=== PATIENT | female | born 1970 | race Caucasian/White ===

== ENCOUNTER 2024-11-25 19:14 | Emergency (ER) | payer OTHER ==
[~2024-11-25] VITALS: Ht 162.6 cm; Wt 103.6 kg
[2024-11-25 19:19] VITALS: BP 176/109; PULSE 90; RESP 20; TEMP 98.5; O2SAT 98
[2024-11-25] MEDS: PredniSONE 20 MG TABLET PO ONE (21:45)
[2024-11-25] MEDS: LIDOCAINE 5% TRANSDERMAL PATCH TD ONE (21:46)
[2024-11-25] MEDS: KETOROLAC TROMETHAMINE 30 MG/ML VIAL IM ONE (21:47)
[2024-11-25] MEDS ORDERED: METH-659 PO (22:28)
[2024-11-25] MEDS ORDERED: IBUP-1492 PO (22:28)
== END 2024-11-25 23:20 | disposition home or self-care (01) ==
LOC: EMS 19:14
DX: M54.42 Lumbago with sciatica, left side (principal); E78.00 Pure hypercholesterolemia, unspecified; I10 Essential (primary) hypertension; K21.9 Gastro-esophageal reflux disease without esophagitis; Z88.0 Allergy status to penicillin
CPT/HCPCS: 99283; 96372; J1885; J7512

== ENCOUNTER 2025-03-26 19:10 | Emergency (ER) | payer OTHER ==
[~2025-03-26] VITALS: Ht 162.6 cm; Wt 81.8 kg
[~2025-03-26 19:10] MED LIST: IBUP-1492 PO; METH-659 PO
[2025-03-26] MEDS ORDERED: ROSU5TAB17 PO (19:44)
[2025-03-26] MEDS ORDERED: FLUT16H NASAL (19:44)
[2025-03-26] MEDS ORDERED: OLME40TA18 PO (19:44)
[2025-03-26] MEDS ORDERED: METO-408 PO (19:44)
[2025-03-26] MEDS ORDERED: PANT40TA54 PO (19:44)
[2025-03-26 19:56] LABS: BASOPHILS % (AUTO) 0.9 % (0.0-2.0); EOSINOPHILS % (AUTO) 1.3 % (1.0-6.0); HEMATOCRIT 44.4 % (36-46); HEMOGLOBIN 14.7 g/dL (12.0-16.0); LYMPHOCYTES # (AUTO) 2.6 K/uL (1.0-4.8); LYMPHOCYTES % (AUTO) 23.3 % (22.0-44.0); MEAN CORPUSCULAR HEMOGLOBIN 27.9 pg (26.0-34.0); MEAN CORPUSCULAR VOLUME 85 fL (80-100); MONOCYTES # (AUTO) 0.8 K/uL (0.1-1.0); MONOCYTES % (AUTO) 7.2 % (2.0-9.0); NEUTROPHILS # (AUTO) 7.4 K/uL (1.8-7.7); NEUTROPHILS % (AUTO) 67.3 % (40.0-70.0); PLATELET COUNT (AUTO) 308 K/uL (150-450); RED BLOOD CELL COUNT(AUTO) 5.25 MIL/uL (4.00-5.20); RED CELL DISTRIBUTION WIDTH 14.9 % (11.5-14.5)
[2025-03-26 20:07] LABS: ANION GAP 6 mmol/L (8-16); CALCIUM, TOTAL 10.1 mg/dL (8.8-10.5); CARBON DIOXIDE 32 mmol/L (22-29); CHLORIDE 102 mmol/L (98-107); CREATININE 0.76 mg/dL (0.60-1.30); GLOMERULAR FILTR. RATE CALC > 60 mL/min (>60); GLUCOSE,RANDOM 92 mg/dL (70-110); POTASSIUM 4.5 mmol/L (3.5-5.1); SODIUM SERUM 140 mmol/L (136-145); UREA NITROGEN, BLOOD 12 mg/dL (7-18)
[2025-03-26 20:10] LABS: ALBUMIN 3.7 g/dL (3.4-5.0); BILIRUBIN,DIRECT 0.1 mg/dL (0.00-0.20); BILIRUBIN,TOTAL 0.3 mg/dL (0.1-1.0)
[2025-03-26 20:17] LABS: TROPONIN I-HIGH SENSITIVITY 6 ng/L (<51)
[2025-03-26 22:30] VITALS: TEMP 97.3
[2025-03-26] MEDS: METOCLOPRAMIDE HCL 10 MG TABLET PO ONE (23:04)
[2025-03-26] MEDS: DiphenhydrAMINE HCL 25 MG CAPSULE PO ONE (23:04)
[2025-03-26] MEDS ORDERED: METO5TAB95 PO (23:12)
[2025-03-26 23:30] VITALS: BP 134/86; PULSE 82; RESP 16; O2SAT 100
== END 2025-03-26 23:37 | disposition home or self-care (01) ==
LOC: EMS 19:10
DX: R42 Dizziness and giddiness (principal); R11.2 Nausea with vomiting, unspecified; R07.89 Other chest pain; K21.9 Gastro-esophageal reflux disease without esophagitis; I10 Essential (primary) hypertension; E78.00 Pure hypercholesterolemia, unspecified; R06.02 Shortness of breath; Z88.0 Allergy status to penicillin; Z79.899 Other long term (current) drug therapy
CPT/HCPCS: 80048; 80076; 83880; 84484; 85025; 93005; 99284

== ENCOUNTER 2025-06-03 07:05 | Emergency (ER) | payer OTHER ==
[~2025-06-03] VITALS: Ht 162.6 cm; Wt 108.2 kg
[~2025-06-03 07:05] MED LIST changes: +FLUT16H NASAL; -IBUP-1492 PO; -METH-659 PO; +METO-408 PO; +METO5TAB95 PO; +OLME40TA18 PO; +PANT40TA54 PO; +ROSU5TAB17 PO
[2025-06-03 07:35] LABS: PLATELET COUNT (AUTO) 331 K/uL (150-450); RED BLOOD CELL COUNT(AUTO) 5.47 MIL/uL (4.00-5.20); RED CELL DISTRIBUTION WIDTH 15.0 % (11.5-14.5); WHITE BLOOD COUNT (AUTO) 9.4 K/uL (4.5-11.0)
[2025-06-03 07:38] LABS: ERYTHROCYTE SEDIMENTATION RATE 67 MM/HR (0-30)
[2025-06-03] MEDS: KETOROLAC TROMETHAMINE 30 MG/ML VIAL IM ONE (07:46)
[2025-06-03 07:50] LABS: CALCIUM, TOTAL 9.1 mg/dL (8.8-10.5); CREATININE 0.72 mg/dL (0.60-1.30); GLOMERULAR FILTR. RATE CALC > 60 mL/min (>60); GLUCOSE,RANDOM 93 mg/dL (70-110); SODIUM SERUM 141 mmol/L (136-145)
[2025-06-03 07:57] VITALS: BP 158/104; PULSE 94; RESP 18; TEMP 98.1; O2SAT 97
[2025-06-03] MEDS ORDERED: PRED20TA3 PO (07:59)
[2025-06-03] MEDS ORDERED: IBUP-1492 PO (07:59)
[2025-06-03 11:17] LABS: UREA NITROGEN, BLOOD 12 mg/dL (7-18)
== END 2025-06-03 08:30 | disposition home or self-care (01) ==
LOC: EMS 07:05
DX: M19.042 Primary osteoarthritis, left hand (principal); E78.00 Pure hypercholesterolemia, unspecified; I10 Essential (primary) hypertension; K21.9 Gastro-esophageal reflux disease without esophagitis; Z98.890 Other specified postprocedural states; Z88.0 Allergy status to penicillin
CPT/HCPCS: 99284; 80048; 84550; 85025; 85651; 36415; 73130; 96372; J1885; J7512